=== PATIENT | male | born 1995 | race Two or more races ===

== ENCOUNTER 2018-07-14 12:54 | Emergency (ER) | payer OTHER ==
[~2018-07-14] VITALS: Ht 162.6 cm; Wt 74.4 kg
== END 2018-07-14 14:49 | disposition home or self-care (01) ==
LOC: ER 12:54
DX: S51.822A Laceration with foreign body of left forearm, initial encounter (principal); W45.8XXA Other foreign body or object entering through skin, initial encounter; Y93.89 Activity, other specified; Y92.89 Other specified places as the place of occurrence of the external cause; Y99.8 Other external cause status